=== PATIENT | male | born 1980 | race Caucasian/White ===

== ENCOUNTER → 2016-04-24 | Outpatient (CLI) | payer BC, OTHER ==
--- NOTE | 2016-04-24 15:57 | REP ---
Scrotal sonography: History: Follow up right inguinal canal cyst. Comparison sonography 11/22/2015 was read as showing a 1.7 cm cystic area at the external ring of the inguinal canal on the right side. Findings: High-resolution bilateral scrotal sonography is performed. Testicular parenchyma remains homogeneous. No intratesticular mass lesion is seen on either side. Right testis measures 4.7 x 2.5 x 3.2 cm. Left testicular dimensions are 4.1 x 2.3 x 3.0 cm. The epididymi are unremarkable bilaterally. Testicular Doppler flow is normal in both testes. Resistive indices are measured at 0.59 and 0.52 on the right and left respectively. Scanning at the level of palpable abnormality again demonstrates a cystic lesion in the inguinal canal along the spermatic cord on the right side. On today's scanning this is slightly larger measuring 1.6 x 1.8 x 1.4 cm. Previously its dimensions were 1.7 x 1.2 x 1.3 cm. Impression: Cystic lesion along the right spermatic cord in the inguinal canal on the right side 1.8 cm in greatest diameter. This is slightly larger than on the prior study. Otherwise unremarkable scrotal sonography. Signed by Sigifredo Galvan MD 04/24/2016 07:43 P
== END ==
LOC: M RAD 13:21
PROVIDERS: ATTEND Nurse Practitioner Women's Health
DX: N50.819 Testicular pain, unspecified (principal); L72.9 Follicular cyst of the skin and subcutaneous tissue, unspecified

== ENCOUNTER → 2017-01-09 | Outpatient (CLI) | payer OTHER ==
--- NOTE | 2017-01-09 16:50 | REP ---
MRI LEFT KNEE: TECHNIQUE: Axial proton density fat saturation, sagittal proton density T2 STIR, water excitation, coronal proton density, proton density fat saturation. Menisci are intact with no evidence of a meniscal tear. The cruciate and collateral ligaments are intact. The extensor mechanism is intact. There is minor chondromalacia in both the medial and lateral compartments. No osteochondral lesion is seen. There is no bone marrow edema or occult fracture. There is a normal amount of joint fluid. There is no popliteal cyst. IMPRESSION: No meniscal tear. Cruciate and collateral ligaments intact. 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 No osteochondral lesion. No other significant abnormality. Signed by José Hartley MD 01/09/2017 05:10 P
--- NOTE | 2017-01-09 16:52 | REP ---
MRI LEFT ELBOW: TECHNIQUE: Multiple sequences in the axial, coronal and sagittal planes. The biceps, triceps, brachialis and brachial radialis demonstrate no abnormal signal and appear intact. Medial and lateral collateral ligaments appear intact. There is no abnormal signal in the common flexor or extensor tendons along the humeral epicondyles. No osteochondral lesion is seen. There is no bone marrow edema or occult fracture. There is a normal amount of joint fluid. IMPRESSION: Negative MRI left elbow. Signed by José Hartley MD 01/09/2017 05:10 P
== END ==
LOC: M RAD 14:37
PROVIDERS: ATTEND Physician Assistant
DX: S83.412D Sprain of medial collateral ligament of left knee, subsequent encounter (principal); X58.XXXD Exposure to other specified factors, subsequent encounter; Y92.89 Other specified places as the place of occurrence of the external cause; Y93.89 Activity, other specified; Y99.8 Other external cause status

== ENCOUNTER → 2017-12-03 | Outpatient (REF) | payer OTHER ==
[2017-12-03 14:01] LABS: APPEARANCE, URINE CLEAR (CLEAR); BACTERIA, URINE AUTO NEGATIVE (NEGATIVE); BILIRUBIN, URINE AUTO NEGATIVE (NEGATIVE); BLOOD, URINE BLOOD 1+ (NEGATIVE); COLOR, URINE YELLOW (YELLOW); GLUCOSE, URINE (UA) AUTO NEGATIVE (NEGATIVE); KETONE, URINE AUTO NEGATIVE (NEGATIVE); LEUKOCYTE ESTERASE, URINE AUTO NEGATIVE (NEGATIVE); MUCUS, URINE SMALL (NEGATIVE); NITRITE, URINE AUTO NEGATIVE (NEGATIVE); PROTEIN, URINE AUTO NEGATIVE (NEGATIVE); RBC, URINE AUTO 1 /HPF (0-3); SPECIFIC GRAVITY URINE AUTO 1.012 (1.002-1.035); SQUAMOUS EPITHELIAL CELL UR AU 0 /HPF (0-6); UROBILINOGEN, URINE AUTO 0.2 mg/dL (0.0-2.0); WBC, URINE AUTO 4 /HPF (0-3)
== END ==
LOC: M SMT 13:21
DX: N50.819 Testicular pain, unspecified (principal)

== ENCOUNTER → 2017-12-05 | Outpatient (CLI) | payer BC, OTHER | LOC: M RAD 15:10 | DX: N50.3 Cyst of epididymis (principal); N50.819 Testicular pain, unspecified | CPT/HCPCS: 76870 ==

== ENCOUNTER → 2019-08-18 | Outpatient (REF) | payer OTHER ==
[2019-08-19 19:08] LABS: TESTOSTERONE FREE (DIRECT) 11.3 pg/mL (8.7-25.1)
== END ==
LOC: M LAB REF 12:21
PROVIDERS: ATTEND Physician Assistant Medical
DX: R68.82 Decreased libido (principal)

== ENCOUNTER → 2019-08-25 | Outpatient (REF) | payer OTHER | LOC: M LAB REF 11:17 | PROVIDERS: ATTEND Physician Assistant Medical | DX: R68.82 Decreased libido (principal) ==

== ENCOUNTER → 2020-05-10 | Outpatient (CLI) | payer BC, OTHER ==
--- NOTE | 2020-05-10 14:26 | REP ---
INDICATION: SOB, COUGH. COMPARISON: Comparison chest x-ray October 31, 2004. TECHNIQUE: Two views.. FINDINGS: The lungs are well inflated and free of infiltrate. The pleural angles are sharp. The heart size is normal. Pulmonary vasculature is not increased. No significant bony abnormality is seen. IMPRESSION: Negative chest x-ray. <Electronically signed by Kulwinder Galvan > 05/10/20 [id number]
== END ==
LOC: M WUC 11:31
PROVIDERS: ATTEND Physician Assistant
DX: R06.02 Shortness of breath (principal)

== ENCOUNTER 2020-05-12 08:16 | Emergency (ER) | payer BC, OTHER ==
[~2020-05-12] VITALS: Ht 172.7 cm; Wt 95.0 kg
[2020-05-12] MEDS ORDERED: TESS100C PO (08:27)
[2020-05-12] MEDS ORDERED: ALBUTEROL 90 MCG/ACT 8GM HFA INHALER INH ONE (09:00)
--- NOTE | 2020-05-12 09:29 | REP ---
INDICATION: cough/sob COMPARISON: 05/10/2020. TECHNIQUE: PA/Lateral FINDINGS: Lungs: Clear, no infiltrate. Heart: Normal in size. Mediastinum: Mediastinal silhouette unremarkable. Pleural angles: Unremarkable.. Bones and soft tissues: Unremarkable. IMPRESSION: No acute pulmonary disease. <Electronically signed by José Hartley > 05/12/20 [id number]
[2020-05-12] MEDS ORDERED: predniSONE 20 MG TAB PO ONE (09:40)
[2020-05-12 10:29] LABS: BASO % 0.3 % (0.0-1.0); EOS # 0.2 10^3/uL (0.0-0.5); EOS % 2.1 % (0.0-3.0); HEMATOCRIT 47.2 % (42.0-52.0); HEMOGLOBIN 15.7 g/dl (13.5-17.5); LYMPH # 1.7 10^3/uL (1.5-5.0); LYMPH % 22.4 % (24.0-44.0); MEAN CORPUSCULAR HEMOGLOBIN 31.2 pg (27.0-33.0); MEAN CORPUSCULAR HGB CONC 33.3 g/dl (32.0-36.5); MEAN CORPUSCULAR VOLUME 93.7 fl (80.0-96.0); MONO # 0.8 10^3/uL (0.0-0.8); MONO % 10.7 % (2.0-8.0); NEUTROPHILS # 4.8 10^3/uL (1.5-8.5); NEUTROPHILS % 64.2 % (36.0-66.0); PLATELET COUNT, AUTOMATED 270 10^3/uL (150-450); RED BLOOD COUNT 5.04 10^6/uL (4.30-6.10); WHITE BLOOD COUNT 7.5 10^3/uL (4.0-10.0)
[2020-05-12 11:04] LABS: ALBUMIN 3.1 GM/DL (3.2-5.2); ALT/SGPT 32 U/L (12-78); BILIRUBIN,TOTAL 0.5 MG/DL (0.2-1.0); BLOOD UREA NITROGEN 10 MG/DL (7-18); CALCIUM LEVEL 9.2 MG/DL (8.5-10.1); CARBON DIOXIDE LEVEL 26 MEQ/L (21-32); CHLORIDE LEVEL 104 MEQ/L (98-107); CREATININE FOR GFR 1.13 MG/DL (0.70-1.30); GLOMERULAR FILTRATION RATE > 60.0 (>60); GLUCOSE, FASTING 91 MG/DL (70-100); POTASSIUM SERUM 4.1 MEQ/L (3.5-5.1); SODIUM LEVEL 139 MEQ/L (136-145); TOTAL PROTEIN 6.9 GM/DL (6.4-8.2)
[2020-05-12] MEDS ORDERED: PROV108A INH (12:24)
[2020-05-12] MEDS ORDERED: AZIT-12 PO (12:24)
[2020-05-12 12:35] VITALS: BP 121/75
== END 2020-05-12 12:38 | disposition home or self-care (01) ==
LOC: M ED 08:16
DX: J20.9 Acute bronchitis, unspecified (principal); R11.2 Nausea with vomiting, unspecified; B00.1 Herpesviral vesicular dermatitis; Z98.84 Bariatric surgery status; Z88.0 Allergy status to penicillin; Z79.899 Other long term (current) drug therapy

== ENCOUNTER → 2022-07-11 | Outpatient (CLI) | payer BC, OTHER ==
[~2022-07-11] MED LIST: ALBU6.7H6 INH; AZIT-12 PO; TESS100C PO
[2022-07-11 17:50] LABS: ALBUMIN 3.6 G/DL (3.2-5.2); BLOOD UREA NITROGEN 11 MG/DL (9-23); CALCIUM LEVEL 8.8 MG/DL (8.5-10.1); CARBON DIOXIDE LEVEL 25 MMOL/L (20-31); CHLORIDE LEVEL 102 MMOL/L (98-107); CREATININE FOR GFR 0.98 MG/DL (0.70-1.30); GLOMERULAR FILTRATION RATE > 60.0 (>60); GLUCOSE, FASTING 70 MG/DL (60-100); PHOSPHORUS LEVEL 2.9 MG/DL (2.5-4.9); POTASSIUM SERUM 4.5 MMOL/L (3.5-5.1); SODIUM LEVEL 137 MMOL/L (136-145)
[2022-07-13 23:12] LABS: PSA TOTAL 1.5 ng/mL (0.0-4.0)
== END ==
LOC: M WUC 11:48
PROVIDERS: ATTEND Physician Assistant
DX: R31.9 Hematuria, unspecified (principal); R30.0 Dysuria

== ENCOUNTER → 2022-07-20 | Outpatient (CLI) | payer BC | LOC: M RAD 15:38 | PROVIDERS: ATTEND Physician Assistant | DX: R31.9 Hematuria, unspecified (principal); R30.0 Dysuria ==

== ENCOUNTER → 2022-07-24 | Outpatient (REF) | payer BC ==
[2022-07-24 18:13] LABS: APPEARANCE, URINE CLEAR (CLEAR); BACTERIA, URINE AUTO NEGATIVE (NEGATIVE); BILIRUBIN, URINE AUTO NEGATIVE (NEGATIVE); BLOOD, URINE BLOOD 2+ (NEGATIVE); COLOR, URINE STRAW (YELLOW); GLUCOSE, URINE (UA) AUTO NEGATIVE (NEGATIVE); KETONE, URINE AUTO NEGATIVE (NEGATIVE); LEUKOCYTE ESTERASE, URINE AUTO 1+ (NEGATIVE); MUCUS, URINE SMALL (NEGATIVE); NITRITE, URINE AUTO NEGATIVE (NEGATIVE); PROTEIN, URINE AUTO NEGATIVE (NEGATIVE); RBC, URINE AUTO 0 /HPF (0-3); SPECIFIC GRAVITY URINE AUTO 1.003 (1.002-1.035); SQUAMOUS EPITHELIAL CELL UR AU 0 /HPF (0-6); UROBILINOGEN, URINE AUTO 0.2 mg/dL (0.0-2.0); WBC, URINE AUTO 4 /HPF (0-3)
== END ==
LOC: M LAB REF 16:53
PROVIDERS: ATTEND Physician Assistant
DX: R31.0 Gross hematuria (principal)

== ENCOUNTER → 2022-08-07 | Outpatient (CLI) | payer BC ==
[~2022-08-07] MED LIST changes: +ISOVUE-370 76% 100ML VIAL As Ordered ONE
== END ==
LOC: M RAD 15:10
PROVIDERS: ATTEND Physician Assistant
DX: R31.0 Gross hematuria (principal); K76.0 Fatty (change of) liver, not elsewhere classified
CPT/HCPCS: 74178; Q9967

== ENCOUNTER 2023-01-30 22:34 | Emergency (ER) | payer OTHER, BC ==
[~2023-01-30 22:34] MED LIST changes: -ISOVUE-370 76% 100ML VIAL As Ordered ONE
[2023-01-30] MEDS ORDERED: MIDAZOLAM 100MG/100ML-0.9%NACL 100 MG in IV 1 EA IV SCH (23:10)
[2023-01-30] MEDS ORDERED: MIDAZOLAM INJ 2MG/2ML VIAL As Ordered ONE (23:20)
[2023-01-30] MEDS ORDERED: MIDAZOLAM INJ 2MG/2ML VIAL IV ONE (23:25)
[2023-01-30 23:28] LABS: BASO % 0.3 % (0.0-1.0); EOS # 0.1 10^3/uL (0.0-0.5); EOS % 0.6 % (0.0-3.0); HEMATOCRIT 34.2 % (42.0-52.0); HEMOGLOBIN 11.4 g/dl (13.5-17.5); LYMPH # 5.3 10^3/uL (1.5-5.0); LYMPH % 35.6 % (24.0-44.0); MEAN CORPUSCULAR HEMOGLOBIN 33.2 pg (27.0-33.0); MEAN CORPUSCULAR HGB CONC 33.3 g/dl (32.0-36.5); MEAN CORPUSCULAR VOLUME 99.7 fl (80.0-96.0); MONO # 0.9 10^3/uL (0.0-0.8); MONO % 5.9 % (2.0-8.0); NEUTROPHILS # 8.5 10^3/uL (1.5-8.5); NEUTROPHILS % 56.2 % (36.0-66.0); PLATELET COUNT, AUTOMATED 238 10^3/uL (150-450); RED BLOOD COUNT 3.43 10^6/uL (4.30-6.10)
[2023-01-30 23:38] LABS: APPEARANCE, URINE CLEAR (CLEAR); BACTERIA, URINE AUTO 1+ (NEGATIVE); BILIRUBIN, URINE AUTO NEGATIVE (NEGATIVE); BLOOD, URINE BLOOD 3+ (NEGATIVE); COLOR, URINE STRAW (YELLOW); GLUCOSE, URINE (UA) AUTO NEGATIVE (NEGATIVE); KETONE, URINE AUTO NEGATIVE (NEGATIVE); LEUKOCYTE ESTERASE, URINE AUTO NEGATIVE (NEGATIVE); NITRITE, URINE AUTO NEGATIVE (NEGATIVE); PROTEIN, URINE AUTO NEGATIVE (NEGATIVE); RBC, URINE AUTO 0 /HPF (0-3); SPECIFIC GRAVITY URINE AUTO 1.002 (1.002-1.035); SQUAMOUS EPITHELIAL CELL UR AU 0 /HPF (0-6); UROBILINOGEN, URINE AUTO 0.2 mg/dL (0.0-2.0); WBC, URINE AUTO 0 /HPF (0-3)
[2023-01-30] MEDS ORDERED: ISOVUE-370 76% 100ML VIAL As Ordered ONE (23:49)
[2023-01-30 23:56] LABS: INR 1.79; PROTHROMBIN TIME 20.2 SECONDS (12.5-14.5)
[2023-01-30 23:57] LABS: PARTIAL THROMBOPLASTIN TIME 35.9 SECONDS (24.8-34.2)
[2023-01-30 23:59] LABS: AMPHETAMINES LEVEL URINE NEGATIVE (NEGATIVE); BARBITURATES URINE NEGATIVE (NEGATIVE); BENZODIAZEPINES URINE NEGATIVE (NEGATIVE); CANNABINOIDS URINE NEGATIVE (NEGATIVE); COCAINE METABOLITE URINE NEGATIVE (NEGATIVE); METHADONE URINE NEGATIVE (NEGATIVE); OPIATES URINE NEGATIVE (NEGATIVE); PHENCYCLIDINE URINE NEGATIVE (NEGATIVE)
[2023-01-30 23:59] LABS: ABG BASE EXCESS -18.2 (-2.0-2.0); ABG HCO3 10.8 MMOL/L (22.0-26.0); ABG O2 SATURATION 97.1 % (95.0-99.0); ABG PARTIAL PRESSURE CO2 37.4 mmHg (35.0-45.0); ABG PARTIAL PRESSURE O2 133.5 mmHg (75.0-100.0); ABG STANDARD HCO3 10.8 MMOL/L. (22.0-26.0)
[2023-01-31 00:03] LABS: ALBUMIN 2.4 G/DL (3.2-5.2); BILIRUBIN,DIRECT 0.2 MG/DL (<0.4); BILIRUBIN,TOTAL 0.5 MG/DL (0.3-1.2); TOTAL PROTEIN 4.4 G/DL (5.7-8.2)
[2023-01-31] MEDS ORDERED: NS 2,700 ML in IV 1 EA IV ONE (00:15)
[2023-01-31 00:21] LABS: ETHYL ALCOHOL (ETHANOL) 0.274 % (0.000-0.010)
[2023-01-31 00:22] LABS: MB/CK RELATIVE INDEX 1.01 (< OR =4)
[2023-01-31] MEDS ORDERED: dexmedeTOMidine 200 MCG in IV 1 EA IV SCH (00:35)
[2023-01-31] MEDS ORDERED: NS 1,000 ML IV SCH (00:40)
[2023-01-31] MEDS ORDERED: DOPamine HCL 800 MG in IV 1 EA IV SCH (00:50)
[2023-01-31 01:00] VITALS: O2SAT 97
[2023-01-31 01:05] VITALS: BP 83/44
[2023-01-31 01:13] VITALS: TEMP 96.8
[2023-01-31] MEDS ORDERED: BOOSTRIX VACCINE (TETANUS/DIPHTH/ACEL. PERTUSSIS) 0.5ML SYR IM ONE (01:15)
[2023-01-31] MEDS ORDERED: ETOMIDATE INJ 20MG/10ML VIAL ONE (01:18)
[2023-01-31] MEDS ORDERED: SUCCINYLCHOLINE 100MG/5ML SYRINGE ONE (01:18)
== END 2023-01-31 01:18 | disposition short-term general hospital (02) ==
LOC: EDBD 22:34 → M ED 22:34
DX: S27.321A Contusion of lung, unilateral, initial encounter (principal); S22.41XA Multiple fractures of ribs, right side, initial encounter for closed fracture; S26.91XA Contusion of heart, unspecified with or without hemopericardium, initial encounter; S82.851A Displaced trimalleolar fracture of right lower leg, initial encounter for closed fracture; S02.5XXA Fracture of tooth (traumatic), initial encounter for closed fracture; J91.8 Pleural effusion in other conditions classified elsewhere; V49.40XA Driver injured in collision with unspecified motor vehicles in traffic accident, initial encounter; I44.4 Left anterior fascicular block; I45.10 Unspecified right bundle-branch block; Z79.52 Long term (current) use of systemic steroids; Z79.2 Long term (current) use of antibiotics; Z79.899 Other long term (current) drug therapy
CPT/HCPCS: 31500; 36600; 70450; 70486; 71045; 71260; 72125; 72128; 72131; 72170; 73600; 74177; 80047; 80076; 80307; 81001; 82077; 82150; 82550; 82553; 82803; 83605; 83690; 84484; 85025; 85610; 85730; 86850; 86900; 86901; 86920; 87631; 93005; 93041; 94760; 96374; 99291; 99292; J0330; J2250; P9016; Q9967

== ENCOUNTER → 2023-11-07 | Outpatient (REF) | payer OTHER, BC | LOC: M LAB REF 17:18 | PROVIDERS: ATTEND Otolaryngology | DX: J34.2 Deviated nasal septum (principal); R43.8 Other disturbances of smell and taste ==

== ENCOUNTER → 2023-11-16 | Outpatient (CLI) | payer BC | LOC: M PLAIMG 08:06 | PROVIDERS: ATTEND Otolaryngology | DX: J34.2 Deviated nasal septum (principal); J34.89 Other specified disorders of nose and nasal sinuses; R43.8 Other disturbances of smell and taste ==

== ENCOUNTER → 2023-11-28 | Outpatient (CLI) | payer BC | LOC: M OUTALCOH 07:53 | PROVIDERS: ATTEND Psychiatry & Neurology Psychiatry | DX: F10.10 Alcohol abuse, uncomplicated (principal); F17.200 Nicotine dependence, unspecified, uncomplicated ==

== ENCOUNTER 2023-12-18 07:47 | Outpatient (RCR) | payer BC | END 2023-12-20 | LOC: M OUTALCOH 07:47 | PROVIDERS: ATTEND Psychiatry & Neurology Psychiatry | DX: F10.20 Alcohol dependence, uncomplicated (principal); F17.200 Nicotine dependence, unspecified, uncomplicated ==

== ENCOUNTER 2023-12-20 06:55 | Day surgery (SDC) | payer BC ==
[~2023-12-20] VITALS: Ht 172.7 cm; Wt 77.2 kg
[2023-12-20] MEDS ORDERED: fentaNYL 100 MCG/2 ML INJECTION As Ordered ONE (07:41)
[2023-12-20] MEDS ORDERED: ROCURONIUM BROMIDE 50MG/5ML VIAL As Ordered ONE (07:41)
[2023-12-20] MEDS ORDERED: MIDAZOLAM INJ 2MG/2ML VIAL As Ordered ONE (07:41)
[2023-12-20] MEDS ORDERED: LIDOCAINE 2% 100MG/5ML SDV (FOR ANES.) As Ordered ONE (07:41)
[2023-12-20] MEDS ORDERED: propofoL 200 MG/20 ML VIAL As Ordered ONE (07:41)
[2023-12-20] MEDS: LIDOCAINE W/EPINEPHRINE 1% 20ML VIAL As Ordered ONE (07:42)
[2023-12-20] MEDS: NS 1,000 ML IV SCH (07:43)
[2023-12-20] MEDS: METHYLENE BLUE 0.5% (5MG/ML) 10 ML AMP (PROVAYBLUE) As Ordered ONE (08:00)
[2023-12-20] MEDS: EPINEPHrine 1MG/ML INJ 30ML MD-VIAL As Ordered ONE (08:00)
[2023-12-20] MEDS ORDERED: ONDANSETRON 4MG 2ML VIAL As Ordered ONE (08:22)
[2023-12-20] MEDS ORDERED: SUGAMMADEX SODIUM 500 MG/5 ML VIAL (BRIDION) As Ordered ONE (08:37)
[2023-12-20] MEDS ORDERED: ACETAMINOPHEN 1000MG 100ML IV BAG As Ordered ONE (08:38)
[2023-12-20] MEDS ORDERED: ESMOLOL INJ 100MG/10ML VIAL As Ordered ONE (08:41)
[2023-12-20] MEDS ORDERED: PHENYLephrine 500MCG 5ML (100MCG/ML) SYRINGE As Ordered ONE (08:53)
[2023-12-20] MEDS: SODIUM CHLORIDE 0.9% NASAL GEL 15GM (AYR) As Ordered ONE (09:11)
[2023-12-20] MEDS ORDERED: NS 1,000 ML IV SCH (09:30)
[2023-12-20] MEDS ORDERED: fentaNYL 100 MCG/2 ML INJECTION IV PRN (09:30)
[2023-12-20] MEDS: HYDROMORPHONE HCL 0.5 MG/ 0.5 ML SYRINGE IV PRN (09:41)
[2023-12-20] MEDS: ONDANSETRON 4MG 2ML VIAL IV PRN (09:42)
[2023-12-20] MEDS: oxyCODONE 5MG TAB PO PRN (09:42)
[2023-12-20 10:35] VITALS: BP 125/76
[2023-12-20 10:55] VITALS: TEMP 98.5; O2SAT 99
== END 2023-12-20 11:00 | disposition home or self-care (01) ==
LOC: M SDC 06:55
PROVIDERS: ATTEND Otolaryngology
DX: J34.2 Deviated nasal septum (principal); F17.220 Nicotine dependence, chewing tobacco, uncomplicated; R06.83 Snoring; Z88.0 Allergy status to penicillin
CPT/HCPCS: 30520; 88300; J0131; J0171; J1100; J1171; J1805; J2250; J2371; J2405; J3010; Q9968

== ENCOUNTER 2024-01-10 08:00 | Outpatient (RCR) | payer BC | END 2024-01-19 | LOC: M OUTALCOH 08:00 | PROVIDERS: ATTEND Psychiatry & Neurology Psychiatry | DX: F10.20 Alcohol dependence, uncomplicated (principal); F17.200 Nicotine dependence, unspecified, uncomplicated ==

== ENCOUNTER 2024-02-11 08:00 | Outpatient (RCR) | payer BC | END 2024-02-19 | LOC: M OUTALCOH 08:00 | PROVIDERS: ATTEND Psychiatry & Neurology Psychiatry | DX: F10.20 Alcohol dependence, uncomplicated (principal); F17.200 Nicotine dependence, unspecified, uncomplicated ==

== ENCOUNTER 2024-02-18 15:57 | Outpatient (RCR) | payer BC | END 2024-02-19 | LOC: M OUTALCOH 15:57 | PROVIDERS: ATTEND Psychiatry & Neurology Psychiatry | DX: F10.20 Alcohol dependence, uncomplicated (principal); F17.200 Nicotine dependence, unspecified, uncomplicated ==

== ENCOUNTER → 2024-11-03 | Outpatient (REF) | payer BC | LOC: M LAB REF 17:31 | PROVIDERS: ATTEND Physician Assistant Medical | DX: E78.00 Pure hypercholesterolemia, unspecified (principal) ==